=== PATIENT | male | born 1980 | race Caucasian/White ===

== ENCOUNTER 2018-07-15 11:16 | Emergency (ER) | payer SELFPAY ==
[2018-07-15] MEDS ORDERED: DEXAMETHASONE SOD PHOS INJ 10 MG/1 ML VIAL IM ONE (12:50)
--- NOTE | 2018-07-15 12:52 | ER Document Report ---
HPI - HPI Time Seen by Provider: 07/15/18 12:18 Pain Level: 3 Notes: Patient is an otherwise healthy 38-year-old male who presents to the emergency department with chief complaint of back pain. He reports he has chronic back pain and used to take gabapentin 300 mg 3 times daily. He states that this medication was working however due to a change in his insurance he was unable to go back to his provider to have this medication represcribed. He denies any new injury. He denies any bowel incontinence, denies any saddle anesthesia and reports he is able to urinate without any difficulty. Denies any numbness or tingling to either of his lower extremities. Past Medical History - General Information source: Patient - Social History Smoking Status: Current Every Day Smoker Frequency of alcohol use: Occasional Drug Abuse: None Family History: None - Medical History Medical History: Negative Surgical Hx: Negative - Immunizations Immunizations up to date: Yes Vertical Provider Document - CONSTITUTIONAL Notes: PHYSICAL EXAMINATION: GENERAL: Well-appearing, well-nourished and in no acute distress. HEAD: Atraumatic, normocephalic. EYES: Pupils equal round extraocular movements intact, conjunctiva are normal. ENT: Nares patent NECK: Normal range of motion LUNGS: No respiratory distress Musculoskeletal: Normal range of motion, mild tenderness to palpation to bilateral lumbar paraspinous muscles, no vertebral tenderness, no step-off no deformity. NEUROLOGICAL: Normal speech, normal gait. PSYCH: Normal mood, normal affect. SKIN: Warm, Dry, normal turgor, no rashes or lesions noted. - INFECTION CONTROL TRAVEL OUTSIDE OF THE [place] IN LAST 30 DAYS: No Course - Re-evaluation Re-evalutation: Patient's examination and history are consistent with chronic low back pain. Patient has no red flag symptoms such as bowel incontinence, urinary retention or saddle anesthesia. Patient will be represcribed his gabapentin and encouraged to follow-up with primary care. - Vital Signs Vital signs: Temp Pulse Resp BP Pulse Ox 98.5 F 92 16 141/85 H 96 07/15/18 11:44 07/15/18 11:44 07/15/18 11:44 07/15/18 11:44 07/15/18 11:44 Discharge - Discharge Clinical Impression: Back pain Qualifiers: Back pain location: low back pain Chronicity: chronic Back pain laterality: left Sciatica presence: with sciatica Sciatica laterality: sciatica of left side Qualified Code(s): M54.42 - Lumbago with sciatica, left side Condition: Stable Disposition: HOME, SELF-CARE Additional Instructions: LOW BACK PAIN: Three out of every four people will have an episode of disabling back pain during their lifetime. Most commonly the pain is due to straining of the muscles and ligaments in the low back. Usual treatment includes: (1) Rest on a firm surface. Avoid lying on your stomach. (2) Ice pack the painful area. After a few days, gentle heat may be used intermittently to relax the area, or ice packs can be continued. (3) Medication may be needed -- muscle relaxers and antiinflammatory medicines are commonly used. (4) As the back improves, exercises are prescribed to strengthen the back and abdominal muscles. Your doctor will advise you on the proper care for your back at each stage in your recovery. You may be better in a few days -- or healing may take several weeks. If new symptoms of a "herniated disc" (radiation of pain, numbness, or tingling down the back of the leg or weakness in the leg) occur, you should be re-examined. Further testing may be necessary. MUSCLE RELAXERS: Muscle relaxing medications are usually prescribed for acute muscle spasm or injury to the neck and back. They are often combined with antiinflammatory pain medication for increased relief. You may stop the muscle relaxer when the pain and stiffness have improved. Start the medication again if spasms recur. Muscle relaxers may cause drowsiness, especially with the first dose. Do not operate machinery or drive while under the effects of the medication. Most muscle relaxers last up to 24 hours. Do not combine the medication with alcohol. FOLLOW-UP CARE: If you have been referred to a physician for follow-up care, call the physicians office for an appointment as you were instructed or within the next two days. If you experience worsening or a significant change in your symptoms, notify the physician immediately or return to the Emergency Department at any time for re-evaluation. Prescriptions: Cyclobenzaprine HCl [Flexeril 10 mg Tablet] 10 mg PO TIDP PRN #30 tab PRN Reason: Gabapentin [Neurontin 300 mg Capsule] 300 mg PO Q8 #90 cap Forms: Parent Work Note
[2018-07-15 13:53] VITALS: BP 127/81
== END 2018-07-15 13:59 | disposition home or self-care (01) ==
LOC: ER 11:16
DX: M54.42 Lumbago with sciatica, left side (principal); M54.9 Dorsalgia, unspecified; G89.29 Other chronic pain; F17.200 Nicotine dependence, unspecified, uncomplicated
CPT/HCPCS: 99283; 96372; J1100

== ENCOUNTER 2018-08-14 05:54 | Emergency (ER) | payer SELFPAY ==
[2018-08-14] MEDS ORDERED: MORPHINE SULFATE 10 MG/ML INJ IV ONE ×2 (06:24→07:50)
--- NOTE | 2018-08-14 06:25 | ER Document Report ---
ED General - General Chief Complaint: Dizziness Stated Complaint: HEADACHE Time Seen by Provider: 08/14/18 06:12 Primary Care Provider: SANDHYA MCGOWAN MD [NO LOCAL MD] - Follow up in 3-5 days TRAVEL OUTSIDE OF THE [place] IN LAST 30 DAYS: No - HPI Notes: Patient is a 38-year-old male that presents to the emergency department for chief complaint of dizziness. Patient reports generalized headache, somnolence, dizziness, photophobia and phonophobia for the last 2 days. He states he is having a severe headache bilaterally behind his ears. He states today the headache acutely became worse. He does report this is the worst headache of his life. He denies history of migraines in the past. He states his grandfather had from an intracranial aneurysm which she is very concerned about today. He took NyQuil last night thinking the headache was sinus pressure which did not give him any relief. The pain does seem to be worse when he is lying down. He endorses some blurry vision stating it is hard to focus at a distance. He denies any new numbness or weakness. Patient states he has bad sciatica on the left and usually has some weakness and numbness in his left leg and foot, this is unchanged from him over the last few days. Past Medical History: Restless leg syndrome, sciatica Past Surgical History: Negative Social History: Daily tobacco. occasional alcohol. Occasional marijuana. Family History: Reviewed and noncontributory for presenting illness Allergies: Reviewed, see documented allergy list. REVIEW OF SYSTEMS: CONSTITUTIONAL : No fever No chills No diaphoresis No recent illness EENT: vision changes congestion No sore throat CARDIOVASCULAR: No chest pain No palpitations RESPIRATORY: No shortness of breath No cough No difficulty breathing GASTROINTESTINAL: No abdominal pain No nausea No vomiting No diarrhea GENITOURINARY: No dysuria No hematuria No difficulty urinating MUSCULOSKELETAL: No back pain No leg pain No arm pain SKIN: No rashes No lesions LYMPHATIC: No swollen, enlarged glands. NEUROLOGICAL: No lightheadedness headache Dizziness weakness paresthesias PSYCHIATRIC: No anxiety No depression PHYSICAL EXAMINATION: Vital signs reviewed, nursing noted reviewed. GENERAL: well-nourished and in no acute distress. HEAD: Atraumatic, normocephalic. EYES: Eyes appear normal, extraocular movements intact, sclera anicteric, conjunctiva are normal. ENT: nares patent, oropharynx clear without exudates. Moist mucous membranes. NECK: Normal range of motion, supple without lymphadenopathy LUNGS: Breath sounds clear to auscultation bilaterally and equal. No wheezes rales or rhonchi. HEART: Regular rate and rhythm without murmurs ABDOMEN: Soft, nontender, normoactive bowel sounds. No rebound, guarding, or rigidity. No masses appreciated. EXTREMITIES: Nontender, good range of motion, no pitting or edema. NEUROLOGICAL: GCS 15. No focal neurological deficits. Moves all extremities spontaneously Motor and sensory grossly intact on exam. Left dorsiflexion plantarflexion +5/5 but slightly less strength than right dorsiflexion plantarflexion. PSYCH: Normal mood, normal affect. SKIN: Warm, Dry, normal turgor, no rashes or lesions noted on exposed skin - Related Data Allergies/Adverse Reactions: Penicillins Allergy (Verified 07/15/18 11:17) Past Medical History - Social History Smoking Status: Unknown if Ever Smoked Family History: None Patient has suicidal ideation: No Patient has homicidal ideation: No Renal/ Medical History: Denies: Hx Peritoneal Dialysis - Immunizations Immunizations up to date: Yes Physical Exam - Vital signs Vitals: Temp Pulse Resp BP Pulse Ox 97.4 F 86 20 150/99 H 99 08/14/18 05:55 08/14/18 05:55 08/14/18 05:55 08/14/18 05:55 08/14/18 05:55 Course - Re-evaluation Re-evalutation: 08/14/18 08:00 Vitals reviewed. Nursing notes reviewed. Patient is hypertensive at presentation likely related to his severe pain. He received morphine and Valium for symptomatic management. On reevaluation patient is having no improvement of his headache. He is still neurologically intact with a GCS of 15. Patient CT brain shows an 8 mm colloid cyst with no associated hydrocephaly. His CTA is negative for acute aneurysm or intracranial hemorrhage. Patient's lab work is unremarkable. Currently I feel his headache is related to this colloid cyst which may be causing an obstruction. I have neurosurgery at [facility] on page and am awaiting a callback. Patient will be ordered another dose of pain medication for further symptomatic management. Laboratory 08/14/18 08/14/18 08/14/18 06:15 06:15 06:15 WBC 9.2 RBC 4.82 Hgb 15.5 Hct 45.3 MCV 94 MCH 32.2 MCHC 34.2 RDW 12.7 Plt Count 324 Seg Neutrophils % 38.5 L Lymphocytes % 40.9 Monocytes % 10.5 Eosinophils % 8.8 H Basophils % 1.3 Absolute Neutrophils 3.5 Absolute Lymphocytes 3.8 Absolute Monocytes 1.0 Absolute Eosinophils 0.8 H Absolute Basophils 0.1 PT 12.1 INR 0.85 APTT 29.3 Sodium 139.9 Potassium 4.5 Chloride 105 Carbon Dioxide 28 Anion Gap 7 BUN 10 Creatinine 0.90 Est GFR ( Amer) > 60 Est GFR (Non-Af Amer) > 60 Glucose 132 H POC Glucose Calcium 9.3 Total Bilirubin 0.4 Direct Bilirubin 0.2 Neonat Total Bilirubin Not Reportable Neonat Direct Bilirubin Not Reportable Neonat Indirect Bili Not Reportable AST 35 ALT 21 Alkaline Phosphatase 57 Troponin I Total Protein 5.7 L Albumin 3.5 08/14/18 08/14/18 06:15 06:37 WBC RBC Hgb Hct MCV MCH MCHC RDW Plt Count Seg Neutrophils % Lymphocytes % Monocytes % Eosinophils % Basophils % Absolute Neutrophils Absolute Lymphocytes Absolute Monocytes Absolute Eosinophils Absolute Basophils PT INR APTT Sodium Potassium Chloride Carbon Dioxide Anion Gap BUN Creatinine Est GFR ( Amer) Est GFR (Non-Af Amer) Glucose POC Glucose 117 H Calcium Total Bilirubin Direct Bilirubin Neonat Total Bilirubin Neonat Direct Bilirubin Neonat Indirect Bili AST ALT Alkaline Phosphatase Troponin I < 0.012 Total Protein Albumin Head CT 08/14/18 06:12 IMPRESSION: No acute intracranial findings. 8 mm colloid cyst without hydrocephalus. Chest X-Ray 08/14/18 06:25 IMPRESSION: No acute cardiopulmonary findings. Head CTA 08/14/18 06:52 IMPRESSION: No evidence of vessel occlusion, aneurysm or stenosis. 08/14/18 08:18 Patient's care was discussed with Shankar HERRMANN for the neurosurgery service at [facility]. He states he is not concern for increased intracranial pressure since there is no hydrocephalus on the CT scan and given the size of the cyst. Patient has continued to be severely symptomatic and is not stable for discharge home. I still feel given his intracranial pathology he should be at a facility capable of neurosurgical intervention. I am currently awaiting a callback from the hospitalist for admission. 08/14/18 08:52 Patient's care was discussed with a Dr. Brandt at [facility] who does accept the patient for admission and transfer. Transfer line is telling me that they may not have a bed in the next 24 hours. At this time I will attempt to call other facilities to see if there is any other options for patient transfer. Patient will be ordered Decadron for further pain management. 08/14/18 09:39 Patient again reevaluated. He states his pain is now a 7 out of 10. His dizzi ness has slightly improved. He states he is feeling better but minimally. I am still waiting on a callback from neurosurgery at [facility]. 08/14/18 10:00 Patient's care was discussed with a Dr. Dukes, Neurosurgery at [facility], who also feels that a colloid cyst under 1 cm with no hydrocephalus on CT scan is likely not acutely obstructing causing increased intracranial pressures. He does not the patient is requiring inpatient neurosurgery evaluation. He does advise patient follow with neurosurgery on an outpatient basis for MRI. Patient will be now ordered Reglan and Benadryl to treat the possibility of a atypical complex migraine. 08/14/18 10:58 Patient evaluated again and is continuing to have improvement. He states he is now a 6 out of 10. I did tell him that he has able to be admitted at [facility] or at this facility since 2 neurosurgeons do not feel he is requiring a facility with neurosurgery. Patient does not wish to be admitted to the hospital now. He states he is feeling well enough to try and go home. He is able to stand and ambulate. He will be given referral to neurosurgery for outpatient follow-up. Patient given return precautions and verbalized understanding. He was stable at time of discharge. - Vital Signs Vital signs: Temp Pulse Resp BP Pulse Ox 97.6 F 90 16 142/99 H 97 08/14/18 10:19 08/14/18 06:26 08/14/18 10:02 08/14/18 10:02 08/14/18 10:02 - Laboratory Result Diagrams: 08/14/18 06:15 08/14/18 06:15 Laboratory results interpreted by me: 08/14/18 08/14/18 08/14/18 06:15 06:15 06:37 Seg Neutrophils % 38.5 L Eosinophils % 8.8 H Absolute Eosinophils 0.8 H Glucose 132 H POC Glucose 117 H Total Protein 5.7 L - EKG Interpretation by Me Additional EKG results interpreted by me: 08/14/18 Interpreted by myself [id number]: Normal sinus rhythm, rate 83, normal axis, no ectopy, no STEMI Discharge - Discharge Clinical Impression: Colloid cyst of brain, Severe headache Condition: Stable Disposition: HOME, SELF-CARE Instructions: Headache ([facility]) Additional Instructions: Please return to the emergency department if you have any worsening, or concern of your symptoms. Please return to the emergency department if you develop chest pain, difficulty breathing, severe abdominal pain, or ongoing vomiting. Please follow-up with your primary care physician in 2-3 days and any other recommended physicians. If prescribed, take all medications as directed. If you have any questions or concerns do not hesitate to return the emergency department for evaluation. Please call Dr. Mcgowan, neurosurgery, to establish outpatient follow-up Return to the emergency room for any new numbness, weakness, fever, vision changes, severe headache or new concerning symptoms Referrals: SANDHYA MCGOWAN MD [NO LOCAL MD] - Follow up in 3-5 days [facility] [Provider Group] - Follow up as needed
[2018-08-14 06:34] LABS: ABSOLUTE BASOPHILS # (AUTO) 0.1 10^3/uL (0.0-0.2); ABSOLUTE EOSINOPHILS # (AUTO) 0.8 10^3/uL (0.0-0.6); ABSOLUTE LYMPHOCYTES (AUTO) 3.8 10^3/uL (0.5-4.7); ABSOLUTE NEUT (AUTO) 3.5 10^3/uL (1.7-8.2); BASOPHILS % (AUTO) 1.3 % (0-2); EOSINOPHILS % (AUTO) 8.8 % (0-6); HEMATOCRIT 45.3 % (37.9-51.0); HEMOGLOBIN 15.5 g/dL (13.5-17.0); LYMPHOCYTES % (AUTO) 40.9 % (13-45); MEAN CORPUSCULAR HEMOGLOBIN 32.2 pg (27.0-33.4); MEAN CORPUSCULAR HGB CONC 34.2 g/dL (32.0-36.0); MEAN CORPUSCULAR VOLUME 94 fl (80-97); MONOCYTES % (AUTO) 10.5 % (3-13); PLATELET COUNT 324 10^3/uL (150-450); RED BLOOD COUNT 4.82 10^6/uL (4.35-5.55); RED CELL DISTRIBUTION WIDTH 12.7 % (11.5-14.0); SEGMENTED NEUTROPHILS % (AUTO) 38.5 % (42-78); TOTAL CELLS COUNTED % (AUTO) 100 %; WHITE BLOOD COUNT 9.2 10^3/uL (4.0-10.5)
[2018-08-14 06:40] LABS: INTERNATIONAL RATION (INR) 0.85
[2018-08-14 06:41] LABS: PARTIAL THROMBOPLASTIN TIME 29.3 SEC (23.5-35.8)
[2018-08-14 06:43] LABS: PROTHROMBIN TIME 12.1 SEC (11.4-15.4)
[2018-08-14 06:46] LABS: ALANINE AMINOTRANSFERASE 21 U/L (21-72); ALBUMIN 3.5 g/dL (3.5-5.0); ALKALINE PHOSPHATASE 57 U/L (38-126); ANION GAP 7 (5-19); ASPARTATE AMINO TRANSFERASE 35 U/L (17-59); BILIRUBIN,DIRECT 0.2 mg/dL (0.0-0.4); BILIRUBIN,TOTAL 0.4 mg/dL (0.2-1.3); BLOOD UREA NITROGEN 10 mg/dL (7-20); CALCIUM 9.3 mg/dL (8.4-10.2); CARBON DIOXIDE 28 mmol/L (22-30); CHLORIDE 105 mmol/L (98-107); GLUCOSE 132 mg/dL (75-110); POTASSIUM 4.5 mmol/L (3.6-5.0); SODIUM 139.9 mmol/L (137-145); TOTAL PROTEIN 5.7 g/dL (6.3-8.2)
--- NOTE | 2018-08-14 06:49 | RADIOLOGY REPORT (SQ) ---
CLINICAL HISTORY: dizziness COMPARISON: None. 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 FINDINGS: There is no acute hemorrhage, mass effect or midline shift. Ken-white differentiation is preserved. There is a hyperdense focus within the roof of the third ventricle measuring 8 mm. There is no significant volume loss for age. The calvarium is intact. Orbits and globes are unremarkable. The paranasal sinuses are clear. Mastoid air cells are clear. IMPRESSION: No acute intracranial findings. 8 mm colloid cyst without hydrocephalus.
[2018-08-14] MEDS ORDERED: DIAZEPAM INJ 10 MG/2 ML DISP.SYRIN IV ONE (06:53)
[2018-08-14] MEDS ORDERED: DIAZEPAM 5 MG TABLET PO ONE (07:05)
--- NOTE | 2018-08-14 07:08 | RADIOLOGY REPORT (SQ) ---
EXAM DESCRIPTION: XR CHEST 1 VIEW COMPLETED DATE/TME: 08/14/2018 06:25 CLINICAL HISTORY: 38 years Male, Dizziness COMPARISON: None. NUMBER OF VIEWS/TECHNIQUE: 1/AP FINDINGS: Adequate lung volume, clear parenchyma, normal cardiac silhouette, and intact bony thorax. IMPRESSION: No acute cardiopulmonary findings.
--- NOTE | 2018-08-14 07:34 | EKG REPORT ---
SEVERITY:- BORDERLINE ECG - SINUS RHYTHM PROBABLE LEFT ATRIAL ABNORMALITY : Confirmed by: Fabi Toribio MD 14-Aug-2018 07:32:33
--- NOTE | 2018-08-14 07:34 | RADIOLOGY REPORT (SQ) ---
CLINICAL HISTORY: headache, dizziness COMPARISON: CT performed earlier the same day. 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 MIP reconstructions were generated. Stenoses are calculated by NASCET criteria. FINDINGS: Distal internal carotid arteries are unremarkable. The anterior communicating artery is present. Bilateral anterior and middle cerebral arteries are patent. Vertebral basilar system is patent with a diminutive right vertebral artery. Bilateral posterior cerebral arteries are unremarkable.Previously seen colloid cyst is poorly seen. IMPRESSION: No evidence of vessel occlusion, aneurysm or stenosis.
[2018-08-14] MEDS ORDERED: HYDROMORPHONE HCL INJ/PF 2 MG/ML AMPULE IV ONE (08:20)
[2018-08-14] MEDS ORDERED: DEXAMETHASONE SOD PHOS INJ 10 MG/1 ML VIAL IV ONE (08:47)
[2018-08-14] MEDS ORDERED: DIPHENHYDRAMINE HCL 50 MG/ML VIAL IV ONE (09:59)
[2018-08-14] MEDS ORDERED: METOCLOPRAMIDE HCL INJ/PF 10 MG/2 ML SDV IV ONE (09:59)
[2018-08-14] MEDS ORDERED: NORMAL SALINE 1000 ML 1,000 ML IV ONE (09:59)
[2018-08-14 12:06] VITALS: BP 127/95
== END 2018-08-14 12:07 | disposition home or self-care (01) ==
LOC: ER 05:54
DX: G93.0 Cerebral cysts (principal); R51 Headache; R42 Dizziness and giddiness; R40.0 Somnolence; H53.149 Visual discomfort, unspecified; R20.0 Anesthesia of skin
CPT/HCPCS: 93005; 99284; 96361; 96374; 96375; 36415; 82962; 85025; 85610; 85730; 80053; 84484; 71045; 70450; 70496; 93010; J1200; J2765; J2270; J1170; J7030; J1100